=== PATIENT | male | born 1960 | race Caucasian/White ===

== ENCOUNTER 2020-03-28 08:44 | Day surgery (SDC) | payer BC ==
--- NOTE | 2020-03-28 08:01 | PCM.PREANE ---
Preanesthetic Assessment - Anesthesia/Transfusion/Family Hx Anesthesia History: Prior Anesthesia Without Reaction Family History of Anesthesia Reaction: No Transfusion History: No Prior Transfusion(s) Intubation History: Unknown - Review of Systems General: No Symptoms Pulmonary: No Symptoms (ETOH: frequently) Cardiovascular: No Symptoms (History of HTN, history of RBBB) Gastrointestinal: No Symptoms (occasionally some GERD) Neurological: No Symptoms Other: Reports: None - Physical Assessment NPO Status Date: 03/27/20 NPO Status Time: 04:30 Vital Signs: HR: 66 B/P: 146/76 Temp: 98.2 Sat: 96% Resp:16 Height: 1.85 m Weight: 138 kg ASA Class: 3 Mental Status: Alert & Oriented x3 Airway Class: Mallampati = 2 Dentition: Reports: Normal Dentition, Thurmond(s), Caries Thyro-Mental Finger Breadths: 3 Mouth Opening Finger Breadths: 3 ROM/Head Extension: Full Lungs: Clear to Auscultation, Normal Respiratory Effort Cardiovascular: Regular Rate, Regular Rhythm, No Murmurs - Lab Values: All labs reviewed and noted and within acceptable ranges to proceed with scheduled procedure. - Imaging/EKG Impressions: EKG: SR rate=64, Right BBB - Allergies Allergies/Adverse Reactions: Allergies Allergy/AdvReac Type Severity Reaction Status Date / Time No Known Drug Allergies Allergy Other Verified 03/27/20 14:25 - Anesthesia Plan Pre-Op Medication Ordered: None - Acknowledgements Anesthesia Type Planned: MAC Pt an Appropriate Candidate for the Planned Anesthesia: Yes Alternatives and Risks of Anesthesia Discussed w Pt/Guardian: Yes Pt/Guardian Understands and Agrees with Anesthesia Plan: Yes PreAnesthesia Questionnaire Cardiovascular History: Reports: Hypertension, Other (See Below) Other Cardiovascular History: history of right bundle branch block - Past Surgical History GI Surgical History: Reports: Cholecystectomy Male Surgical History: Reports: Vasectomy Musculoskeletal Surgical History: Reports: Other (See Below) Other Musculoskeletal Surgeries/Procedures:: left achilles repair surgery. right ankle surgery - SUBSTANCE USE Smoking Status *Q: Never Smoker Days Per Week of Alcohol Use: 5 Recreational Drug Use History: No - HOME MEDS Home Medications: Home Meds lisinopriL [Lisinopril] 10 mg PO DAILY 03/27/20 [History] - CURRENT (IN HOUSE) MEDS Current Meds: Current Medications Lactated Ringer's (Ringers, Lactated) 1,000 mls @ 125 mls/hr IV ASDIRECTED ISABEL Stop: 03/28/20 23:00 Lidocaine/Sodium Bicarbonate (Buffered Lidocaine 1% In Ns 8.4%) 0.25 ml IDERM ONETIME PRN PRN Reason: Prior to IV Start Stop: 03/28/20 18:00 Sodium Chloride (Saline Flush) 10 ml FLUSH ASDIRECTED PRN PRN Reason: Keep Vein Open Stop: 03/28/20 18:00
[~2020-03-28 08:44] MED LIST: Lactated Ringers 1,000 ML IV SCH; Lidocaine 1%/Sod Bicarbonate in NS 8.4% 1 ML Syringe IDERM PRN; Sodium Chloride 0.9% 10 ML Syringe FLUSH PRN
[2020-03-28] MEDS ORDERED: Propofol 200 MG/20 ML SDV ONE ×3 (09:15→11:39)
--- NOTE | 2020-03-28 11:55 | PCM.PRNOTE ---
- Free Text/Narrative Note: Date: 03/28/2020 Procedure: screening colonoscopy Endoscopist: Mono Escoto MD Findings: Ileocecal valve visualized. Prep was suboptimal, with fair amount of fluid and bubbles throughout colon. Extensive sigmoid diverticulosis. No polyps identified. Detailed Report: The patient was taken to the endoscopy suite and placed in left lateral decubitus position. Time out was performed and monitored anesthesia care was initiated. The anus appeared normal. On digital exam there was some palpable friable tissue posterior which felt like a fissure. The lubricated colonoscope was then inserted and advanced all the way to the cecum. The ileocecal valve was visualized. The prep was not ideal; there was a lot of cloudy fluid and bubbles, especially in the proximal half of the colon. On slow withdrawal of the scope, mucosal surfaces were carefully inspected. No polyps were identified. There was significant sigmoid diverticulosis. No pathology noted on retroflexion within the rectum. The patient tolerated the procedure well.
== END 2020-03-28 12:30 | disposition home or self-care (01) ==
LOC: JD.SDS 08:44
PROVIDERS: ATTEND Surgery
DX: Z12.11 Encounter for screening for malignant neoplasm of colon (principal); I10 Essential (primary) hypertension; K57.30 Diverticulosis of large intestine without perforation or abscess without bleeding; Z79.899 Other long term (current) drug therapy; Z72.0 Tobacco use
CPT/HCPCS: 45378; J2704; J7120